=== PATIENT | female | born 1955 | race Caucasian/White ===

== ENCOUNTER → 2021-05-12 | Outpatient (CLI) | payer MEDICARE ==
[~2021-05-12] MED LIST: ATOR40TA PO; CYCL0.05OP; Dapsone25 MG PO; ESOM20 PO; FLUO10 PO; LEVSOD75 PO; LORA10ER PO; METF500 PO; MOBIC15 MG PO; OMEP20ER PO; SUBVENITE200 M1 PO; TRAZ100 PO; ZOLP10 PO
[2021-05-18 15:11] LABS: HPV 16 Negative (Negative); HPV 18 Negative (Negative); HPV OTHER HR TYPES Negative (Negative)
== END | disposition home or self-care (01) ==
LOC: LAB 17:22 → LAB SHORT 17:22
PROVIDERS: Family Medicine
DX: Z12.4 Encounter for screening for malignant neoplasm of cervix (principal); R30.9 Painful micturition, unspecified
CPT/HCPCS: 87086

== ENCOUNTER → 2022-01-31 | Outpatient (CLI) | payer MEDICARE | LOC: LAB SHORT 09:20 → LAB 09:20 | DX: N39.0 Urinary tract infection, site not specified (principal) | CPT/HCPCS: 87077; 87086; 87186 ==

== ENCOUNTER 2022-11-07 09:02 | Day surgery (SDC) | payer MEDICARE ==
[~2022-11-07] VITALS: Ht 154.9 cm; Wt 72.0 kg
--- NOTE | 2022-11-07 15:19 | NUR ---
11/07/22 1519 Parish Quiroz INITIALLY, PT'S O2 PERIODICALLY DROPPED TO LOW 90'S AND HIGH 80'S DURING STAY IN STEP DOWN. O2 WOULD QUICKLY AND SPONTANEOUSLY RETURN TO HIGH 90'S. PT WAS GIVEN INCENTIVE SPIROMETERY AND INSTRUCTED IN ITS USE. O2 WAS NOT OBSERVED BELOW 93% DURING FINAL 30 MINUTES IN STEP DOWN. VITALS SIGNS STABLE AT TIME OF DISCHARGE.
== END 2022-11-07 14:55 | disposition home or self-care (01) ==
LOC: ORSCSDS 09:02
PROVIDERS: Orthopaedic Surgery
PROC: 0LN60ZZ Release Left Lower Arm and Wrist Tendon, Open Approach (ICD-10-PCS; principal; 2022-11-07 10:30)
PROC: 0RQT0ZZ Repair Left Carpometacarpal Joint, Open Approach (ICD-10-PCS; principal; 2022-11-07 10:30)
DX: M18.12 Unilateral primary osteoarthritis of first carpometacarpal joint, left hand (principal); M65.4 Radial styloid tenosynovitis [de Quervain]; E11.9 Type 2 diabetes mellitus without complications; K21.9 Gastro-esophageal reflux disease without esophagitis; E03.9 Hypothyroidism, unspecified; M79.7 Fibromyalgia; Z79.84 Long term (current) use of oral hypoglycemic drugs; Z79.899 Other long term (current) drug therapy
CPT/HCPCS: 82947; C1713; J0171; J0690; J1100; J1885; J2250; J2370; J2405; J2704; J2795; J3010; J7120

== ENCOUNTER → 2024-04-07 | Outpatient (CLI) | payer MEDICARE ==
[2024-04-07 19:02] LABS: Creatinine, Urine Random 31.4 mg/dL (27.00-270.00)
[2024-04-07 19:04] LABS: Microalb/Creat Ratio UR, Rand 24.522 mg/g (0.000-30.000); Microalbumin, Random Urine 7.7 mg/L (0.000-20.000)
== END | disposition home or self-care (01) ==
LOC: LAB SHORT 17:32
PROVIDERS: Family Medicine
DX: E11.69 Type 2 diabetes mellitus with other specified complication (principal)
CPT/HCPCS: 82043; 82570

== ENCOUNTER → 2025-06-21 | Outpatient (CLI) | payer MEDICARE ==
[2025-06-21 20:00] LABS: Creatinine, Urine Random 25.8 mg/dL (27.00-270.00); Microalb/Creat Ratio UR, Rand 40.698 mg/g (0.000-30.000); Microalbumin, Random Urine 10.5 mg/L (0.000-20.000)
== END ==
LOC: LAB 17:35 → LAB SHORT 17:35
PROVIDERS: Family Medicine
DX: E11.65 Type 2 diabetes mellitus with hyperglycemia (principal); E11.69 Type 2 diabetes mellitus with other specified complication
CPT/HCPCS: 82043; 82570